=== PATIENT | male | born 1955 | race Caucasian/White ===

== ENCOUNTER 2019-02-28 13:05 | Inpatient (IN) ==
[2019-02-28] MEDS ORDERED: BENTYL PO PRN (14:25)
[2019-02-28] MEDS ORDERED: SALINE LOCK IV FLUID XX ONE (14:25)
[2019-02-28] MEDS ORDERED: D5W 1,000 ML IV PRN (14:25)
[2019-02-28] MEDS ORDERED: MOTRIN PO PRN (14:25)
[2019-02-28] MEDS ORDERED: ZOFRAN IV PRN (14:25)
[2019-02-28] MEDS ORDERED: MAALOX PLUS LIQUID PO PRN (14:25)
[2019-02-28] MEDS ORDERED: DULCOLAX PR PRN (14:25)
[2019-02-28] MEDS ORDERED: SENOKOT PO PRN (14:25)
[2019-02-28] MEDS ORDERED: ZOFRAN ODT PO PRN (14:25)
[2019-02-28] MEDS ORDERED: DESYREL PO PRN (14:25)
[2019-02-28] MEDS ORDERED: TYLENOL PO PRN (14:25)
[2019-02-28] MEDS ORDERED: SEROQUEL PO PRN (14:25)
[2019-02-28] MEDS ORDERED: PHENOBARBITAL IV PRN (14:25)
[2019-02-28] MEDS ORDERED: IMODIUM PO PRN (14:25)
[2019-02-28] MEDS: LIBRIUM PO SCH ×2 (14:56→22:04)
[2019-02-28] MEDS ORDERED: TUBERSOL ID ONE (15:00)
[2019-02-28 15:01] LABS: HEMATOCRIT 44.8 % (42.0-52.0); MCH 33.1 PG (27-31); MCHC 35.7 g/dL (33-37); MCV 92.6 FL (81-99); MPV 8.9 FL (7.4-10.4); RBC 4.84 XMIL (4.7-6.1); RDW 13.8 % (11.5-14.5); WBC 8.96 X1000 (4.8-10.8)
[2019-02-28 15:14] LABS: INR 0.94
[2019-02-28 15:18] LABS: AGAP 11; ALBUMIN 4.4 g/dL (3.5-5.0); ALKALINE PHOSPHATASE 96 U/L (32-122); BUN 7 mg/dL (8-22); CALCIUM 9.3 mg/dL (8.8-10.2); CHLORIDE 100 mmol/L (98-107); COSMO 271; CREATININE 0.6 mg/dL (0.7-1.2); ESTIMATED GFR > 60; GLUCOSE 148 mg/dL (70-104); GOT 18 U/L (10-34); GPT 29 U/L (10-44); POTASSIUM 4.3 mmol/L (3.5-5.1); SODIUM 135 mmol/L (136-145); TCO2 24 mmol/L (25-35); TOTAL PROTEIN 7.3 g/dL (6.3-8.3)
[2019-02-28 15:34] LABS: UR AMPHETAMINES QUAL NONE DETECTED (NONE DETECT); UR BARBITUATES QUAL NONE DETECTED (NONE DETECT); UR BENZODIAZEPIN QUAL NONE DETECTED (NONE DETECT); UR CANNABINOIDS QUAL NONE DETECTED (NONE DETECT); UR COCAINE QUAL NONE DETECTED (NONE DETECT); UR METHADONE QUAL NONE DETECTED (NONE DETECT); UR METHAMPHETAMINE QUAL NONE DETECTED (NONE DETECT); UR OPIATES QUAL NONE DETECTED (NONE DETECT); UR OXYCODONE QUAL NONE DETECTED (NONE DETECT); UR PCP QUAL NONE DETECTED (NONE DETECT); UR PROPOXYPHENE QUAL NONE DETECTED (NONE DETECT); UR TCA QUAL PRESUMPTIVE POSITIVE (NONE DETECT)
[2019-02-28 15:41] LABS: AMYLASE 70 U/L (20-200); LIPASE 41 U/L (13-60)
[2019-02-28] MEDS ORDERED: M.V.I.-12 10 ML, FOLIC ACID 1 MG, MAGNESIUM SULFATE 1 GM, THIAMINE 100 MG in NS 1,000 ML IV ONE (16:00)
[2019-02-28] MEDS: NICODERM PATCH TD PRN (16:10)
[2019-02-28] MEDS ORDERED: PNEUMOVAX 23 IM ONE (16:15)
[2019-02-28] MEDS: ATARAX PO PRN (16:46)
[2019-02-28 17:16] LABS: URINE SOURCE CLEAN CATCH
[2019-02-28 18:16] LABS: BILIRUBIN URINE NEGATIVE (NEGATIVE); BLOOD URINE NEGATIVE (NEGATIVE); KETONE URINE NEGATIVE (NEGATIVE); LEUKOCYTES URINE TRACE (NEGATIVE); NITRITE URINE NEGATIVE (NEGATIVE); PROTEIN URINE NEGATIVE (NEGATIVE); UROBILINOGEN URINE NORMAL
[2019-02-28 18:17] LABS: CLARITY CLEAR (CLEAR); COLOR YELLOW
[2019-02-28 18:18] LABS: URINE BACTERIA NEGATIVE /HFP; URINE CAST NONE SEEN /LPF; URINE CRYSTAL NONE SEEN /HPF; URINE EPITHELIAL CELLS <10 /HPF (<10); URINE RBC <10 /HPF (<10); URINE SMALL ROUND CELLS TRANSITIONAL PRESENT; URINE WBC <10 /HPF (<10); URINE YEAST NONE SEEN /HPF
--- NOTE | 2019-02-28 19:01 | HISTORY AND PHYSICAL ---
CHIEF COMPLAINT: Nausea, vomiting, tremors. HISTORY OF PRESENT ILLNESS: Patient is a 63-year-old male who presented to [facility] [place] [facility] secondary to nausea, vomiting, abdominal pain, tremors, and myalgias. The patient notes that he had been 3 years sober and then became stressed and thought that he was fine and a few drinks would improve his situation. Unfortunately, he almost immediately was back up to 30+ beers a day. SOCIAL HISTORY: Patient is a . He is on disability. Lives at home in [place], cares for his mother. PAST MEDICAL HISTORY: Significant for COPD, chronic back and neck pain, chronic anxiety. Since drinking, he has had approximately 15 pound weight loss, history of anxiety and depression, blackouts due to alcohol. Has history of hypertension, chronic reflux. MEDICATIONS: Lisinopril 20. Omeprazole 40. Gabapentin 300. [place] t.i.d. p.r.n. ALLERGIES: Motrin. REVIEW OF SYSTEMS: CIWA score is elevated at 11, secondary to nausea, vomiting, abdominal pain, moderate tremors. The patient notes that he did start drinking this morning prior to coming to the hospital due to his tremors. He has had generalized weakness. Has a history of blacking out due to his alcoholism. Denies any current fevers, chills, cough, congestion. Denies any dysuria, urinary frequency, urgency, hesitancy, polyuria or polydipsia. Denies skin rashes, weight loss or weight gain. SUBSTANCE ABUSE HISTORY: The patient has a long history of alcoholism. He stopped approximately 3 years ago, has been sober until a few weeks ago. Alcohol has caused social, emotional and legal issues. He currently is on probation due to his alcoholism. He started drinking at age 18, as noted, drank until about 3 years ago at which time he had been sober. Three years is the longest time he has been sober. Currently, he is drinking between 30 and 40 beers a day. Smokes up to 2 packs a day. FAMILY HISTORY: Noncontributory. PHYSICAL EXAMINATION: VITAL SIGNS: Reviewed and stable. GENERAL: He is awake and alert. He is pleasant to talk with, although he is somewhat ill- appearing secondary to his acute withdrawal symptoms. Denies any chest pain, palpitations. Denies any fevers or chills. HEENT: Normocephalic. NECK: Supple. CARDIOVASCULAR: Regular rate. CHEST: Clear. ABDOMEN: Soft, nondistended, nontender. EXTREMITIES: Moves all extremities. NEUROLOGIC: No focal changes. ASSESSMENT: 1. Nausea and vomiting. 2. Abdominal pain. 3. Myalgias. 4. Paresthesias. 5. Paroxysmal sweating. 6. Hypertension. 7. Chronic obstructive pulmonary disease. 8. Chronic back and neck pain. 9. Alcohol abuse, withdrawal and admit for stabilization. PLAN: We will continue patient in the hospital. Continue counseling, place him on high-dose Librium taper and will follow. We will continue his other medications as needed. cc: Gabriel Hassan MD
[2019-02-28] MEDS: ROBAXIN PO PRN (22:06)
[2019-03-01] MEDS: LIBRIUM PO SCH ×4 (03:41→20:21)
[2019-03-01] MEDS: ROBAXIN PO PRN (04:45)
[2019-03-01] MEDS: ATARAX PO PRN ×2 (04:45→11:37)
[2019-03-01] MEDS: PROTONIX PO SCH (06:02)
[2019-03-01] MEDS: VITAMIN B-1 PO SCH (08:37)
[2019-03-01] MEDS: THERA M PLUS PO SCH (08:38)
[2019-03-01] MEDS: FOLIC ACID PO SCH (08:38)
[2019-03-01] MEDS: SINGULAIR PO SCH (08:41)
[2019-03-02] MEDS: ATARAX PO PRN ×2 (01:03→09:49)
[2019-03-02] MEDS: ROBAXIN PO PRN ×2 (01:03→20:25)
[2019-03-02] MEDS: LIBRIUM PO SCH ×4 (03:43→20:24)
[2019-03-02] MEDS: PROTONIX PO SCH ×2 (05:51→06:36)
--- NOTE | 2019-03-02 07:52 | PROGRESS NOTE ---
DATE: 03/01/2019 SUBJECTIVE: Patient notes that he is starting to feel a little bit better. He is having less muscle aches, tremors are improved, nausea has improved. Denies any fevers or chills. PHYSICAL EXAMINATION: Vital Signs: Temperature 97.5, pulse 92, respiratory 18, BP 111/72. General: Patient is awake, alert. He is in no current respiratory distress. HEENT: Normocephalic. Neck: Supple. CV: Regular rate. No murmurs. Chest: Clear, nonlabored. Abdomen: Soft. Extremities: Moves all extremities. Neurologic: No changes. ASSESSMENT: 1. Nausea and vomiting. 2. Abdominal pain. 3. Myalgias. 4. Paresthesias. 5. Tremors. 6. Alcohol abuse and withdrawal with stabilization. PLAN: We will continue patient in the hospital, continue Librium taper, and will adjust as needed. Continue counseling. cc: Gabriel Hassan MD
[2019-03-02] MEDS: THERA M PLUS PO SCH (09:47)
[2019-03-02] MEDS: FOLIC ACID PO SCH (09:48)
[2019-03-02] MEDS: SINGULAIR PO SCH (09:48)
[2019-03-02] MEDS: VITAMIN B-1 PO SCH (09:49)
[2019-03-02] MEDS: NICODERM PATCH TD PRN (10:55)
[2019-03-02] MEDS: NORCO-7.5 PO PRN ×2 (10:55→20:25)
[2019-03-02] MEDS ORDERED: NEURONTIN PO ONE (11:15)
--- NOTE | 2019-03-02 12:54 | Diag Imaging Result Doc PS360 ---
EXAM: CHEST-2 VIEWS 03/02/2019 HISTORY: [facility] rehab at discharge TECHNIQUE: PA and lateral chest COMMENT: The inspiration is suboptimal. Considering the degree of inspiration there has been no significant change since 10/10/2018. IMPRESSION: Poor inspiration. Electronically signed by Aftab Hardy 03/02/2019 12:51 PM
--- NOTE | 2019-03-02 18:36 | PROGRESS NOTE ---
DATE: 03/02/2019 SUBJECTIVE: Patient notes he is feeling a little dizzy this morning. Denies any fevers or chills. Denies any chest pain or palpitations. PHYSICAL EXAMINATION: Vital Signs: Reviewed. Temp 97.5, pulse 84, respirations 18, BP 136/85. General: The patient is in no current distress. General: Patient is very pleasant. He is in no distress. HEENT: Normocephalic. Neck: Supple. Cardiovascular: Regular rate. Chest: Clear. Abdomen: Soft. Extremities: Moves all extremities. Neurologic: No changes. ASSESSMENT: 1. Nausea and vomiting. 2. Abdominal pain. 3. Myalgias. 4. Paresthesias. 5. Alcohol abuse withdrawal and stabilization. 6. Chronic pain. PLAN: We will continue to follow patient. Hopefully, can discharge soon. We will continue to wean Librium. Further orders as needed. cc: Gabriel Hassan MD
[2019-03-02] MEDS: NEURONTIN PO SCH (20:25)
[2019-03-03] MEDS: LIBRIUM PO SCH (03:16)
[2019-03-03] MEDS: PROTONIX PO SCH (06:17)
[2019-03-03] MEDS: THERA M PLUS PO SCH (08:20)
[2019-03-03] MEDS: FOLIC ACID PO SCH (08:20)
[2019-03-03] MEDS: SINGULAIR PO SCH (08:20)
[2019-03-03] MEDS: NEURONTIN PO SCH (08:20)
[2019-03-03] MEDS: VITAMIN B-1 PO SCH (08:20)
[2019-03-03] MEDS: NORCO-7.5 PO PRN (08:23)
[2019-03-03] MEDS: ROBAXIN PO PRN (08:24)
[2019-03-03 08:27] VITALS: BP 163/94
[2019-03-03] MEDS ORDERED: LIBRIUM PO SCH (09:00)
--- NOTE | 2019-03-03 13:09 | DISCHARGE SUMMARY ---
ADMISSION DATE: 02/28/2019 DISCHARGE DATE: 03/03/2019 DISCHARGE DIAGNOSES: 1. Nausea and vomiting. 2. Abdominal pain. 3. Myalgias. 4. Paresthesias. 5. Paroxysmal sweating. 6. Alcohol abuse withdrawal and stabilization. 7. Chronic obstructive pulmonary disease. 8. Chronic neck and back pain. 9. Adult failure to thrive. 10. Chronic anxiety, situational. 11. Hypertension. 12. Chronic reflux. 13. History of blackouts secondary to alcoholism. CONSULTATIONS: None. PROCEDURES: None. BRIEF HOSPITAL COURSE: Patient is a 63-year-old male who presented to [facility] [place] [facility] secondary to nausea, vomiting, abdominal pain, and myalgias. The patient notes that he has been drinking again. He was sober for approximately 3 years and started drinking again. He has been drinking heavily for the past 6 weeks. He does not abuse his Aubrey. He is not taking any other substances currently other than prescribed medications. He was admitted to [facility] [facility] secondary to nausea, vomiting, abdominal pain, tremors, and myalgias. He was watched for withdrawal. He was placed on high-dose Librium taper. Continue to wean. He continues to have some difficulty with physical activity during the hospital stay. Thankfully, on discharge, is awake and alert. He is in no distress. DISPOSITION: Patient will be discharged to rehab for physical therapy. Discussed with him that he needs to get in with the counseling after discharge from rehab. He needs outpatient life counseling as well as alcohol counseling. He is to avoid all persons, places, situations which he has been using and abusing in the past. DISCHARGE MEDICATIONS: 1. Lisinopril 20 mg daily. 2. Omeprazole 40 daily. 3. Flexeril 10 b.i.d. p.r.n. 4. Aubrey 7.5 t.i.d. p.r.n. 5. Gabapentin 300 b.i.d. 6. Ventolin inhaler as needed. ALLERGIES: Motrin. TIME SPENT: Greater than 30 minutes was spent on discharge care and instructions. cc: Gabriel Hassan MD
== END 2019-03-03 14:25 | DRG 897 ==
LOC: P.DIRADM 13:12 → P.MEDSURG 13:22
PROVIDERS: ADMIT Family Medicine; ATTEND Family Medicine
CPT/HCPCS: 71020; 71046; 80053; 80104; 80301; 80305; 80307; 80320; 81001; 82055; 82150; 83690; 85027; 85610; A9270; G0431; G0434; G0477; G0480; G6040; J3411; J3475; J7030